=== PATIENT | male | born 1995 | race Caucasian/White ===

== ENCOUNTER 2021-10-29 10:56 | Emergency (ER) | payer OTHER ==
[2021-10-29] MEDS ORDERED: NAPROXEN500 MG PO (11:50)
[2021-10-29] MEDS ORDERED: NORCO 5-325 TA1 EACH PO (11:50)
== END 2021-10-29 12:49 | disposition home or self-care (01) ==
LOC: FER 10:56
DX: S93.105A Unspecified dislocation of left toe(s), initial encounter (principal); X50.1XXA Overexertion from prolonged static or awkward postures, initial encounter; Y92.89 Other specified places as the place of occurrence of the external cause; Y99.0 Civilian activity done for income or pay; Z28.310 Unvaccinated for COVID-19
CPT/HCPCS: 73620; 96374; J2250; J3010